=== PATIENT | male | born 1965 | race Caucasian/White ===

== ENCOUNTER 2017-04-22 09:41 | Emergency (ER) | payer OTHER ==
[2017-04-22 10:38] LABS: Basophils % (Auto) 0.7 % (0.0-1.8); Hematocrit 47.7 % (35.5-45.6); Hemoglobin 15.9 gm/dl (11.8-15.2); Mean Corpuscular HGB Conc 33 % (32-34); Mean Corpuscular Hemoglobin 30 pg (28-32); Mean Corpuscular Volume 88 fl (84-94); Platelet Count 294 K/mm3 (140-440); Red Cell Distribution Width 13.4 % (13.2-15.2); White Blood Count 8.8 K/mm3 (4.5-11.0)
[2017-04-22 10:54] LABS: Anion Gap 20 mmol/L; BUN/Creatinine Ratio 11.25; Blood Urea Nitrogen 9 mg/dL (9-20); Calcium 9.8 mg/dL (8.4-10.2); Carbon Dioxide 23 mmol/L (22-30); Chloride 97.8 mmol/L (98-107); Glucose 88 mg/dL (75-100); Potassium 3.7 mmol/L (3.6-5.0); Sodium 137 mmol/L (137-145)
[2017-04-22 11:06] LABS: Bilirubin,Urine NEG (Negative); Blood,Urine SM (Negative); Ketones,Urine NEG (Negative); Leukocyte Esterase,Urine NEG (Negative); Nitrite,Urine NEG (Negative); Protein,Urine <15 mg/dL mg/dL (Negative); Urobilinogen,Urine < 2.0 mg/dL (<2.0); WBC,Urine < 1.0 /HPF (0.0-6.0)
[2017-04-22] MEDS ORDERED: CATAPRES PO ONE (15:59)
[2017-04-22] MEDS ORDERED: BENADRYL IV ONE (17:52)
[2017-04-22] MEDS ORDERED: NACL 0.9% 1000 ML 500 ML IV ONE (17:52)
[2017-04-22] MEDS ORDERED: ZOFRAN IV PRN (17:52)
--- NOTE | 2017-04-22 18:54 | Emergency Department Report ---
ED General Adult HPI - General Chief complaint: High BP Stated complaint: HIGH BLOOD PRESSURE Time Seen by Provider: 04/22/17 15:32 Source: patient Mode of arrival: Ambulatory Limitations: No Limitations - History of Present Illness Initial comments: Patient reports headache feeling woozy. Reports that he checked his BP and SBP was greater than 200. -: Gradual, days(s) Location: head Radiation: non-radiation Severity scale (0 -10): 1 Quality: aching Consistency: intermittent Improves with: none Worsens with: none Associated Symptoms: other (feeling woozy). denies: confusion, chest pain, cough, diaphoresis, fever/chills, headaches, loss of appetite, malaise, nausea/ vomiting, rash, seizure, shortness of breath, syncope, weakness - Related Data Previous Rx's Medication Instructions Recorded Last Taken Type Amlodipine Besylate [Norvasc] 2.5 mg PO DAILY #14 tab 04/22/17 Unknown Rx Allergies Allergy/AdvReac Type Severity Reaction Status Date / Time No Known Allergies Allergy Unverified 04/22/17 09:57 ED Review of Systems ROS: Stated complaint: HIGH BLOOD PRESSURE Other details as noted in HPI Other: GENERAL: Not feeling right SKIN: No changes in skin or hair, no itching, no rashes, no jaundice HEAD: No trauma, headache, or visual changes EYES: No blurriness, tearing, itching, acute visual loss, conjunctival discoloration, or scleral icterus EARS: No hearing loss, tinnitus, vertigo, or earache NOSE: No rhinorrhea, stuffiness, sneezing, itching, or epistaxis MOUTH: No bleeding gums, hoarseness, sore throat, or swelling CARDIAC: No new murmur, chest pain, palpitations, dyspnea on exertion, orthopnea , PND, or edema RESPIRATORY: No shortness of breath, wheeze, cough, sputum production, hemoptysis, pneumonia, asthma, bronchitis, or emphysema GI: No change in appetite, nausea, vomiting, dysphagia, change in bowel frequency, diarrhea, constipation, bleeding, hematemesis, melena, hematochezia, or abdominal pain URINARY: No frequency, urgency, polyuria, dysuria, hematuria, or incontinence MUSCULOSKELETAL: No muscle weakness, joint stiffness, decrease in range of motion, redness, swelling, tenderness NEUROLOGIC: headache HEMATOLOGIC: No anemia, easy bruising, bleeding, petechiae, or purpura ENDOCRINE: No hot or cold intolerance, sweating, polyuria, polydipsia or, polyphagia no thyroid problems PSYCHIATRIC: No change in mood, no anxiety, no depression ED Past Medical Hx - Past Medical History Previous Medical History?: Yes Hx Hypertension: Yes (no meds) Additional medical history: sleep apnea - Surgical History Past Surgical History?: No - Social History Smoking Status: Former Smoker Substance Use Type: Non Opiate Pain - Medications Home Medications: Home Medications Medication Instructions Recorded Confirmed Last Taken Type Amlodipine Besylate [Norvasc] 2.5 mg PO DAILY #14 tab 04/22/17 Unknown Rx ED Physical Exam - General Limitations: No Limitations - Other Other exam information: GENERAL: Patient in no acute distress HEAD: Normocephalic, atraumatic EYES: PERRLA, EOM intact, no scleral icterus, no conjunctival hemorrhage, visual howard and acuity wnl, NOSE: No tenderness, discharge, sinus tenderness MOUTH: No erythema, bleeding, exudate HEART: Regular rate and rhythm, no murmur, S1-S2 are auscultated, pulses are symmetric LUNGS: No wheezing, rales, rhonchi, bilateral breath sounds ABDOMEN: Normal bowel sounds, no tenderness, no rebound, no guarding, no masses , no CVA tenderness MUSCULOSKELETAL: Normal joint range of motion, no redness, no swelling, no tenderness NEUROLOGIC: GCS 15, Alert and Oriented x3, Cranial nerves intact, normal sensation, normal strength, normal gait, no cerebellar deficit PSYCHIATRIC: No homicidal or suicidal ideation, no anxiety, no depression, no hallucinations SKIN: Skin is warm and dry, no wounds, no rashes ED Course Vital Signs 04/22/17 04/22/17 04/22/17 09:52 15:28 15:30 Temperature 98.3 F Pulse Rate 83 85 Respiratory 20 21 Rate Blood Pressure 189/114 162/95 Blood Pressure [Left] O2 Sat by Pulse 98 98 97 Oximetry 04/22/17 04/22/17 04/22/17 15:40 15:50 16:00 Temperature 98.3 F Pulse Rate 85 84 88 Respiratory 15 21 16 Rate Blood Pressure 162/95 159/111 159/111 Blood Pressure 162/95 [Left] O2 Sat by Pulse 97 99 95 Oximetry 04/22/17 04/22/17 04/22/17 16:10 16:20 16:30 Temperature Pulse Rate 84 81 74 Respiratory 21 17 16 Rate Blood Pressure 159/111 159/111 159/111 Blood Pressure [Left] O2 Sat by Pulse 98 96 95 Oximetry 04/22/17 04/22/17 04/22/17 16:40 16:50 16:55 Temperature Pulse Rate 74 83 84 Respiratory 17 19 Rate Blood Pressure 159/111 159/111 159/111 Blood Pressure [Left] O2 Sat by Pulse 96 96 Oximetry 04/22/17 04/22/17 04/22/17 17:00 17:10 17:20 Temperature Pulse Rate 88 82 77 Respiratory 18 17 19 Rate Blood Pressure 159/111 159/111 159/111 Blood Pressure [Left] O2 Sat by Pulse 95 96 96 Oximetry 04/22/17 04/22/17 04/22/17 17:30 17:40 17:50 Temperature Pulse Rate 77 83 83 Respiratory 17 19 19 Rate Blood Pressure 159/111 120/84 120/84 Blood Pressure [Left] O2 Sat by Pulse 96 95 96 Oximetry 04/22/17 04/22/17 18:00 18:10 Temperature Pulse Rate 78 87 Respiratory 18 21 Rate Blood Pressure 120/84 120/84 Blood Pressure [Left] O2 Sat by Pulse 95 95 Oximetry ED Medical Decision Making - Lab Data Result diagrams: 04/22/17 10:22 04/22/17 10:22 - Radiology Data Radiology results: report reviewed - Medical Decision Making Patient comfortable. Updated with results. Plan discharge with outpatient follow-up. Patient agrees with plan and will return if symptoms worsen. Critical care attestation.: If time is entered above; I have spent that time in minutes in the direct care of this critically ill patient, excluding procedure time. ED Disposition Clinical Impression: Hypertensive urgency Disposition: DC-01 TO HOME OR SELFCARE Is pt being admited?: No Condition: Stable Instructions: Hypertensive Crisis (ED) Prescriptions: Amlodipine Besylate [Norvasc] 2.5 mg PO DAILY #14 tab Referrals: [facility] [Outside] - 3-5 Days [facility] [Outside] - 3-5 Days [facility] [Outside] - 3-5 Days INDIRA HAILE MD [Staff Physician] - 3-5 Days Time of Disposition: 19:28
--- NOTE | 2017-04-22 19:20 | Cat Scan Report ---
FINAL REPORT EXAM: CT HEAD/BRAIN WO CON HISTORY: Alterted Mental Status TECHNIQUE: CT head without contrast PRIORS: None. FINDINGS: No acute intra-axial or extra-axial hemorrhage is identified. There is no evidence of midline shift or mass effect. The ventricles and sulci are within normal limits. Ferrera-white matter differentiation is intact. No acute parenchymal abnormalities seen. Bony calvarium is grossly intact. Visualized portions of the mastoids and paranasal sinuses are unremarkable. IMPRESSION: Negative CT head
[2017-04-22 19:31] VITALS: BP 118/86
== END 2017-04-22 20:02 | disposition home or self-care (01) ==
LOC: ED 09:41
DX: I10 Essential (primary) hypertension (principal); Z87.891 Personal history of nicotine dependence
CPT/HCPCS: 36415; 70450; 80048; 81001; 84484; 85025; 93005; 93010; 96374; 96375; 99285; J1200; J2930; J7030